=== PATIENT | female | born 1970 | race Caucasian/White ===

== ENCOUNTER → 2023-05-14 | Outpatient (CLI) | payer BC ==
[2023-05-14 08:42] LABS: CLARITY URINE CLEAR (CLEAR); COLOR URINE YELLOW (YELLOW); GLUCOSE URINE NEGATIVE (NEGATIVE); KETONES URINE NEGATIVE (NEGATIVE); LEUKOCYTE ESTERASE URINE TRACE (NEGATIVE); NITRITE URINE NEGATIVE (NEGATIVE); OCCULT BLOOD URINE NEGATIVE (NEGATIVE); PH URINE 5.5 (4.5-8.0); PROTEIN URINE NEGATIVE (NEGATIVE); SPECIFIC GRAVITY URINE 1.025 (1.005-1.030); UROBILINOGEN URINE 0.2 E.U./dL (0.2-1.0)
[2023-05-14 08:46] LABS: BASOPHILS % 0.8 % (0.0-2.0); DIFFERENTIAL COMMENT 0; EOSINOPHILS % 4.5 % (0.0-5.0); HEMATOCRIT. 44.7 % (36.0-48.0); HEMOGLOBIN. 14.9 g/dL (12.0-16.0); LYMPHOCYTES % 37.7 % (20.0-50.0); MEAN CORPUSCULAR HEMOGLOBIN 29.5 pg (28.0-32.0); MEAN CORPUSCULAR HGB CONC 33.4 g/dL (31.0-37.0); MEAN CORPUSCULAR VOLUME 88.2 fL (81.0-99.0); MEAN PLATELET VOLUME 9.4 fl (7.4-10.4); MONOCYTES % 6.4 % (2.0-8.0); NEUTROPHILS % 50.6 % (40.0-76.0); PLATELET 286 x1000/uL (130-400); RED BLOOD CELL COUNT 5.06 mill/uL (4.2-5.4); RED CELL DISTRIBUTION WIDTH 14.6 % (11.6-14.6); WHITE BLOOD COUNT 3.7 x1000/uL (4.5-11.0)
[2023-05-14 09:05] LABS: MUCUS URINE 1+ /lpf (< = 2+); SQUAMOUS EPITHELIAL CELL URINE 2+ /lpf (RARE/1+)
[2023-05-14 09:05] LABS: ALANINE AMINOTRANSFERASE 28 IU/L (10-49); ALBUMIN 4.5 g/dL (3.2-4.8); ASPARTATE AMINOTRANSFERASE 27 IU/L (<34); BILIRUBIN TOTAL 1.2 mg/dL (0.1-1.0); CALCIUM 9.4 mg/dL (8.7-10.4); CARBON DIOXIDE 27 mEq/L (21-32); CHLORIDE 105 mEq/L (98-107); CHOLESTEROL 148 mg/dL (<200); CREATININE 0.7 mg/dL (0.6-1.0); GLUCOSE 109 mg/dL (70-105); HDL CHOLESTEROL 43 mg/dL (>65); LDL CHOLESTEROL 100 mg/dL (5-100); POTASSIUM 4.7 mEq/L (3.5-5.1); PROTEIN TOTAL 7.5 g/dL (6.0-8.3); SODIUM 139 mEq/L (136-145); T4 FREE 1.32 ng/dL (0.89-1.76); THYROID STIMULATING HORMONE 1.33 uIU/mL (0.55-4.78); TRIGLYCERIDE 68 mg/dL (0-150); UREA NITROGEN BLOOD 9 mg/dL (9-23)
[2023-05-14 09:06] LABS: BACTERIA URINE 1+; RBC URINE 0-2 /hpf (0-2); WBC URINE 0-2 /hpf (0-2)
== END | disposition home or self-care (01) ==
LOC: LAB 08:04
DX: Z00.01 Encounter for general adult medical examination with abnormal findings (principal); I10 Essential (primary) hypertension
CPT/HCPCS: 80053; 80061; 81003; 82043; 82570; 83036; 84439; 84443; 85025; 87491; 87591

== ENCOUNTER → 2023-09-17 | Outpatient (CLI) | payer BC | END | disposition home or self-care (01) | LOC: RAD 12:20 | DX: R51.9 Headache, unspecified (principal) | CPT/HCPCS: 70150; 70220 ==

== ENCOUNTER → 2023-12-12 | Outpatient (CLI) | payer BC | END | disposition home or self-care (01) | LOC: RAD 10:23 | DX: M47.817 Spondylosis without myelopathy or radiculopathy, lumbosacral region (principal) | CPT/HCPCS: 72040; 72100 ==

== ENCOUNTER → 2023-12-16 | Outpatient (CLI) | payer BC | END | disposition home or self-care (01) | LOC: RAD 10:56 | PROVIDERS: ATTEND Podiatrist Foot & Ankle Surgery | DX: M72.2 Plantar fascial fibromatosis (principal); M79.671 Pain in right foot; M79.672 Pain in left foot | CPT/HCPCS: 73630 ==

== ENCOUNTER → 2024-01-30 | Outpatient (CLI) | payer BC | END | disposition home or self-care (01) | LOC: MRI 16:36 | DX: M51.370 Other intervertebral disc degeneration, lumbosacral region with discogenic back pain only (principal); M47.817 Spondylosis without myelopathy or radiculopathy, lumbosacral region; M48.07 Spinal stenosis, lumbosacral region | CPT/HCPCS: 72148 ==

== ENCOUNTER → 2024-08-14 | Outpatient (CLI) | payer BC ==
[2024-08-14 08:16] LABS: BASOPHILS % 0.8 % (0.0-2.0); DIFFERENTIAL COMMENT 0; EOSINOPHILS % 2.5 % (0.0-5.0); HEMATOCRIT. 41.9 % (36.0-48.0); HEMOGLOBIN. 13.6 g/dL (12.0-16.0); LYMPHOCYTES % 41.6 % (20.0-50.0); MEAN CORPUSCULAR HEMOGLOBIN 29.1 pg (28.0-32.0); MEAN CORPUSCULAR HGB CONC 32.4 g/dL (31.0-37.0); MEAN CORPUSCULAR VOLUME 89.8 fL (81.0-99.0); MEAN PLATELET VOLUME 9.8 fl (7.4-10.4); MONOCYTES % 6.3 % (2.0-8.0); NEUTROPHILS % 48.8 % (40.0-76.0); PLATELET 231 x1000/uL (130-400); RED BLOOD CELL COUNT 4.67 mill/uL (4.2-5.4); RED CELL DISTRIBUTION WIDTH 14.3 % (11.6-14.6); WHITE BLOOD COUNT 3.5 x1000/uL (4.5-11.0)
[2024-08-14 08:28] LABS: CLARITY URINE CLEAR (CLEAR); COLOR URINE YELLOW (YELLOW); GLUCOSE URINE NEGATIVE (NEGATIVE); KETONES URINE NEGATIVE (NEGATIVE); LEUKOCYTE ESTERASE URINE NEGATIVE (NEGATIVE); NITRITE URINE NEGATIVE (NEGATIVE); OCCULT BLOOD URINE NEGATIVE (NEGATIVE); PH URINE 5.5 (4.5-8.0); PROTEIN URINE NEGATIVE (NEGATIVE); SPECIFIC GRAVITY URINE 1.023 (1.005-1.030); UROBILINOGEN URINE 0.2 E.U./dL (0.2-1.0)
[2024-08-14 08:36] LABS: CHLORIDE 107 mEq/L (98-107); POTASSIUM 4.2 mEq/L (3.5-5.1); SODIUM 140 mEq/L (136-145)
[2024-08-14 08:37] LABS: CARBON DIOXIDE 25 mEq/L (21-32)
[2024-08-14 08:42] LABS: CREATININE 0.7 mg/dL (0.6-1.0); GLUCOSE 89 mg/dL (70-105)
[2024-08-14 08:43] LABS: LDL CHOLESTEROL 84 mg/dL (5-100); TRIGLYCERIDE 69 mg/dL (0-150); UREA NITROGEN BLOOD 12 mg/dL (9-23)
[2024-08-14 08:44] LABS: ALANINE AMINOTRANSFERASE 31 IU/L (10-49); ALBUMIN 4.8 g/dL (3.2-4.8); ASPARTATE AMINOTRANSFERASE 27 IU/L (<34); CHOLESTEROL 134 mg/dL (<200); HDL CHOLESTEROL 40 mg/dL (>65)
[2024-08-14 08:45] LABS: BILIRUBIN TOTAL 1.1 mg/dL (0.1-1.0); PROTEIN TOTAL 7.7 g/dL (6.0-8.3)
[2024-08-14 08:47] LABS: THYROID STIMULATING HORMONE 1.07 uIU/mL (0.55-4.78)
[2024-08-15 08:09] LABS: VITAMIN D 25-OH 41.9 ng/mL (30.0-100.0)
[2024-08-15 13:07] LABS: *CREATININE RANDOM URINE 122.7 mg/dL (Not Estab.); MICROALBUMIN RANDOM URINE 3.8 ug/mL (Not Estab.)
== END | disposition home or self-care (01) ==
LOC: LAB 06:57
DX: E11.9 Type 2 diabetes mellitus without complications (principal); E03.9 Hypothyroidism, unspecified; D64.9 Anemia, unspecified; E55.9 Vitamin D deficiency, unspecified; E78.00 Pure hypercholesterolemia, unspecified; Z00.00 Encounter for general adult medical examination without abnormal findings
CPT/HCPCS: 36415; 80053; 80061; 81003; 82043; 82306; 82570; 83036; 84436; 84443; 85025

== ENCOUNTER → 2024-10-06 | Outpatient (CLI) | payer BC ==
[2024-10-06 17:26] LABS: CLARITY URINE CLEAR (CLEAR); COLOR URINE YELLOW (YELLOW)
[2024-10-06 17:27] LABS: GLUCOSE URINE NEGATIVE (NEGATIVE); KETONES URINE NEGATIVE (NEGATIVE); LEUKOCYTE ESTERASE URINE 1+ (NEGATIVE); NITRITE URINE NEGATIVE (NEGATIVE); OCCULT BLOOD URINE NEGATIVE (NEGATIVE); PH URINE 5.0 (4.5-8.0); PROTEIN URINE NEGATIVE (NEGATIVE); SPECIFIC GRAVITY URINE 1.030 (1.005-1.030); UROBILINOGEN URINE 0.2 E.U./dL (0.2-1.0)
[2024-10-06 18:04] LABS: BACTERIA URINE 1+; RBC URINE 0-2 /hpf (0-2); SQUAMOUS EPITHELIAL CELL URINE 1+ /lpf (RARE/1+)
== END | disposition home or self-care (01) ==
LOC: LAB 15:50
DX: N39.0 Urinary tract infection, site not specified (principal)
CPT/HCPCS: 81001; 81003; 87077; 87186

== ENCOUNTER → 2024-11-18 | Outpatient (CLI) | payer BC ==
[2024-11-18 08:36] LABS: CLARITY URINE CLEAR (CLEAR); COLOR URINE YELLOW (YELLOW); GLUCOSE URINE NEGATIVE (NEGATIVE); KETONES URINE NEGATIVE (NEGATIVE); LEUKOCYTE ESTERASE URINE TRACE (NEGATIVE); NITRITE URINE NEGATIVE (NEGATIVE); OCCULT BLOOD URINE NEGATIVE (NEGATIVE); PH URINE 5.5 (4.5-8.0); PROTEIN URINE NEGATIVE (NEGATIVE); SPECIFIC GRAVITY URINE 1.024 (1.005-1.030); UROBILINOGEN URINE 0.2 E.U./dL (0.2-1.0)
[2024-11-18 10:47] LABS: HYALINE CASTS URINE 0-5 /lpf; MUCUS URINE 3+ /lpf (< = 2+); SQUAMOUS EPITHELIAL CELL URINE 1+ /lpf (RARE/1+)
[2024-11-18 10:48] LABS: RBC URINE NONE SEEN /hpf (0-2); WBC URINE 0-2 /hpf (0-2)
[2024-11-18 10:49] LABS: BACTERIA URINE TRACE
== END | disposition home or self-care (01) ==
LOC: LAB 08:01
DX: M25.511 Pain in right shoulder (principal); N39.0 Urinary tract infection, site not specified
CPT/HCPCS: 73030; 81001; 81003; 87077

== ENCOUNTER → 2024-12-10 | Outpatient (CLI) | payer BC | END | disposition home or self-care (01) | LOC: MRI 08:06 | DX: M25.511 Pain in right shoulder (principal); M25.461 Effusion, right knee | CPT/HCPCS: 73221 ==